=== PATIENT | female | born 1985 | race Caucasian/White ===

== ENCOUNTER 2020-08-31 20:17 | Emergency (ER) | payer MEDICAID ==
[~2020-08-31] VITALS: Ht 160 cm; Wt 68.2 kg
[~2020-08-31 20:17] MED LIST: ALBU18HF2 IH; CHLO1CAP PO; CHLO25CA10 PO; DICL100G15 TOP; GABA-530 PO; NITR100C6 PO; NO MEDS; ONDA4TAB6 PO; PRED20TA PO; ZOF4T PO
[2020-08-31 20:22] VITALS: BP 153/91
[2020-08-31] MEDS ORDERED: OFLO5DRO5 LEFT EAR (22:22)
== END 2020-08-31 22:34 | disposition home or self-care (01) ==
LOC: ER 20:19
DX: H60.92 Unspecified otitis externa, left ear (principal); R07.89 Other chest pain; R53.1 Weakness; R06.02 Shortness of breath; F15.90 Other stimulant use, unspecified, uncomplicated; F11.90 Opioid use, unspecified, uncomplicated; F19.90 Other psychoactive substance use, unspecified, uncomplicated; Z86.69 Personal history of other diseases of the nervous system and sense organs; Z86.19 Personal history of other infectious and parasitic diseases; Z98.890 Other specified postprocedural states; Z72.89 Other problems related to lifestyle; Z56.0 Unemployment, unspecified; Z88.0 Allergy status to penicillin; Z79.2 Long term (current) use of antibiotics; Z79.899 Other long term (current) drug therapy
CPT/HCPCS: 93005; 99283

== ENCOUNTER 2020-10-05 22:04 | Emergency (ER) | payer MEDICAID ==
[~2020-10-05] VITALS: Ht 160 cm; Wt 68.0 kg
[~2020-10-05 22:04] MED LIST changes: +OFLO5DRO5 LEFT EAR
[2020-10-05 22:31] VITALS: BP 112/78
[2020-10-05 23:42] LABS: BASOPHILS % (AUTO) 0.5 % (0-1); EOSINOPHILS % (AUTO) 0.1 % (0-6); HEMATOCRIT 39.9 % (35.0-45.0); HEMOGLOBIN 13.4 g/dl (12.0-16.0); LYMPHOCYTES # (AUTO) 2.8 X10'3 (1.1-4.8); LYMPHOCYTES % (AUTO) 48.3 % (21-51); MEAN CORPUSCULAR HEMOGLOBIN 29.7 PG (27.0-31.0); MEAN CORPUSCULAR HGB CONC 33.7 g/dL (33.0-36.5); MEAN CORPUSCULAR VOLUME 88.1 FL (78-98); MEAN PLATELET VOLUME 8.4 FL (7.4-10.4); MONOCYTES # (AUTO) 0.4 X10'3 (0-0.9); MONOCYTES % (AUTO) 6.6 % (2-12); NEUTROPHILS # (AUTO) 2.6 X10'3 (1.8-7.7); NEUTROPHILS % (AUTO) 44.5 % (42-75); PLATELET COUNT 191 X10'3 (140-440); RED BLOOD COUNT 4.53 X10'6 (4.20-5.60); RED CELL DISTRIBUTION WIDTH 14.3 % (11.5-14.5); WHITE BLOOD COUNT 5.8 X10'3 (4.5-11.0)
--- NOTE | 2020-10-05 23:44 | NUR ---
Pt sitting up at edge [email or web address] bed on phone.
[2020-10-05 23:53] LABS: ALANINE AMINOTRANSFERASE 112 U/L (12-78); ALKALINE PHOSPHATASE 52 IU/L (46-116); ANION GAP 10 (8-16); ASPARTATE AMINO TRANSFERASE 82 U/L (10-37); BILIRUBIN,TOTAL 0.2 MG/DL (0.1-1.0); BLOOD UREA NITROGEN 16 MG/DL (7-18); BUN/CREATININE RATIO 18.8 (6.6-38.0); CALCIUM 9.3 MG/DL (8.5-10.1); CHLORIDE 102 MMOL/L (99-107); CREATININE 0.85 MG/DL (0.40-0.90); GLUCOSE 87 MG/DL (70-104); POTASSIUM 3.8 MMOL/L (3.5-5.1); SODIUM 140 MMOL/L (135-145); TOTAL CARBON DIOXIDE 28.5 MMOL/L (24-32); TOTAL PROTEIN 8.2 G/DL (6.4-8.2); eGFR 77 ML/MIN
[2020-10-06 00:02] LABS: TROPONIN I < 0.04 NG/ML (0.0-0.05)
== END 2020-10-06 00:24 | disposition home or self-care (01) ==
LOC: ER 22:05
DX: R07.89 Other chest pain (principal); R20.2 Paresthesia of skin; M79.89 Other specified soft tissue disorders; F17.210 Nicotine dependence, cigarettes, uncomplicated; F15.90 Other stimulant use, unspecified, uncomplicated; F11.90 Opioid use, unspecified, uncomplicated; F19.90 Other psychoactive substance use, unspecified, uncomplicated; Z86.69 Personal history of other diseases of the nervous system and sense organs; Z86.19 Personal history of other infectious and parasitic diseases; Z98.890 Other specified postprocedural states; Z72.89 Other problems related to lifestyle; Z56.0 Unemployment, unspecified; Z88.0 Allergy status to penicillin; Z79.2 Long term (current) use of antibiotics; Z79.899 Other long term (current) drug therapy
CPT/HCPCS: 36415; 71045; 80053; 83880; 84484; 85025; 99284

== ENCOUNTER 2020-10-11 19:57 | Emergency (ER) | payer MEDICAID ==
[~2020-10-11] VITALS: Ht 160 cm; Wt 68.2 kg
[2020-10-11 20:17] VITALS: BP 141/89
[2020-10-11] MEDS ORDERED: PYRA144O PO (23:17)
== END 2020-10-11 23:23 | disposition home or self-care (01) ==
LOC: ER 19:59
DX: R10.9 Unspecified abdominal pain (principal); G40.909 Epilepsy, unspecified, not intractable, without status epilepticus; F15.90 Other stimulant use, unspecified, uncomplicated; Z56.0 Unemployment, unspecified; Z98.891 History of uterine scar from previous surgery; Z86.19 Personal history of other infectious and parasitic diseases; Z88.0 Allergy status to penicillin; Z79.2 Long term (current) use of antibiotics; Z79.899 Other long term (current) drug therapy; Z89.202 Acquired absence of left upper limb, unspecified level
CPT/HCPCS: 99282

== ENCOUNTER 2024-01-09 23:52 | Emergency (ER) | payer MEDICAID ==
[~2024-01-09] VITALS: Ht 160 cm; Wt 63.5 kg
[~2024-01-09 23:52] MED LIST changes: +PYRA144O PO
[2024-01-10] MEDS: LIDOcaine 1% W/epiNEPHrine 1:100,000 20ml vial IJ ONE (00:05)
[2024-01-10] MEDS: ondansetron/PF 4mg/2ml inj IV ONE (01:38)
[2024-01-10] MEDS: LORazepam 2 mg/ml vial IV ONE (01:39)
[2024-01-10] MEDS: TETanus/Pertussis (Acell)/Diphther VAC/PF (Tdap-Adult) 0.5ml syringe IMVAC ONE (01:40)
[2024-01-10] MEDS: fentaNYL/PF 50MCG/1 ML 2ML syringe IV ONE (01:46)
[2024-01-10] MEDS ORDERED: ketamine 50 mg/ml 10ml vial IV ONE (01:55)
[2024-01-10] MEDS ORDERED: hydrALAZINE 20mg/ml inj. IV ONE (02:20)
[2024-01-10] MEDS: ketamine 50 mg/ml 10ml vial IM ONE (03:45)
[2024-01-10] MEDS: ketamine 50 mg/ml 10ml vial IV ONE ×2 (04:54→05:01)
[2024-01-10] MEDS ORDERED: CEPH-585 PO (04:54)
[2024-01-10] MEDS: LORazepam 2 mg/ml vial IV STA (04:57)
[2024-01-10] MEDS: normal saline 1000ml 1,000 ML IV ONE (05:03)
[2024-01-10] MEDS: bacitracin 15gm ointment TP ONE (05:13)
[2024-01-10] MEDS: CefTRIAXone/D5W-Rocephin 1gm 50 ML IV ONE (05:13)
[2024-01-10 08:17] VITALS: TEMP 98.2
[2024-01-10] MEDS ORDERED: IBUP-1985 PO (10:13)
[2024-01-10 10:26] VITALS: BP 107/52; PULSE 105; RESP 16; O2SAT 97
== END 2024-01-10 10:29 | disposition home or self-care (01) ==
LOC: ER 23:53
DX: S51.811A Laceration without foreign body of right forearm, initial encounter (principal); F15.90 Other stimulant use, unspecified, uncomplicated; Z88.0 Allergy status to penicillin; Z79.2 Long term (current) use of antibiotics; Z79.899 Other long term (current) drug therapy; W25.XXXA Contact with sharp glass, initial encounter; Y93.89 Activity, other specified; Y92.89 Other specified places as the place of occurrence of the external cause; Y99.8 Other external cause status
CPT/HCPCS: 12034; 73090; 90471; 90715; 96365; 96375; 96376; 99152; 99153; 99285; J0696; J2060; J2405; J3010; J3490; J7030; 94760; A6258; A6446; A6449

== ENCOUNTER 2024-05-27 19:04 | Emergency (ER) | payer MEDICAID ==
[~2024-05-27] VITALS: Ht 160 cm; Wt 66.8 kg
[~2024-05-27 19:04] MED LIST changes: +IBUP-1985 PO
[2024-05-27 19:12] VITALS: BP 142/88; PULSE 115; RESP 16; TEMP 97.6; O2SAT 100
[2024-05-27 19:57] LABS: BASOPHILS % (AUTO) 0.6 % (0-1); EOSINOPHILS % (AUTO) 0.2 % (0-6); HEMATOCRIT 37.4 % (35.0-45.0); HEMOGLOBIN 12.1 g/dl (12.0-16.0); LYMPHOCYTES # (AUTO) 1.1 X10'3 (1.1-4.8); MEAN CORPUSCULAR HEMOGLOBIN 26.1 PG (27.0-31.0); MEAN CORPUSCULAR HGB CONC 32.4 g/dL (33.0-36.5); MEAN CORPUSCULAR VOLUME 80.5 FL (78-98); MEAN PLATELET VOLUME 7.9 FL (7.4-10.4); MONOCYTES # (AUTO) 0.7 X10'3 (0-0.9); MONOCYTES % (AUTO) 10.6 % (2-12); NEUTROPHILS # (AUTO) 4.4 X10'3 (1.8-7.7); NEUTROPHILS % (AUTO) 70.6 % (42-75); PLATELET COUNT 244 X10'3 (140-440); RED BLOOD COUNT 4.64 X10'6 (4.20-5.60); RED CELL DISTRIBUTION WIDTH 24.1 % (11.5-14.5); WHITE BLOOD COUNT 6.2 X10'3 (4.5-11.0)
[2024-05-27 20:02] LABS: ALANINE AMINOTRANSFERASE 104 U/L (12-78); ALBUMIN 4.1 G/DL (3.4-5.0); ALBUMIN/GLOBULIN RATIO 0.8 (1.1-1.5); ALKALINE PHOSPHATASE 86 IU/L (46-116); ANION GAP 11 (8-16); ASPARTATE AMINO TRANSFERASE 90 U/L (10-37); BILIRUBIN,TOTAL 0.4 MG/DL (0.1-1.0); BLOOD UREA NITROGEN 12 MG/DL (7-18); BUN/CREATININE RATIO 16.9 (10.0-20.0); CALCIUM 9.4 MG/DL (8.5-10.1); CHLORIDE 100 MMOL/L (99-107); CREATININE 0.71 MG/DL (0.40-0.90); GLUCOSE 118 MG/DL (70-104); POTASSIUM 3.7 MMOL/L (3.5-5.1); SODIUM 137 MMOL/L (135-145); TOTAL CARBON DIOXIDE 26.4 MMOL/L (24-32); TOTAL PROTEIN 9.1 G/DL (6.4-8.2); eCRCL 90 ML/MIN; eGFR > 90 ML/MIN
[2024-05-27 20:23] LABS: ANISOCYTOSIS 3+; MICROCYTOSIS FEW; PLATELET ESTIMATE NORMAL
[2024-05-27] MEDS ORDERED: CefTRIAXone 1000mg IM Kit (w/lidocaine diluent) IM ONE (20:45)
[2024-05-27] MEDS ORDERED: SULF1TAB49 PO (20:59)
== END 2024-05-27 21:57 | disposition home or self-care (01) ==
LOC: ER 19:04
DX: S91.115A Laceration without foreign body of left lesser toe(s) without damage to nail, initial encounter (principal); Z88.0 Allergy status to penicillin; Z79.899 Other long term (current) drug therapy; W25.XXXA Contact with sharp glass, initial encounter; Y93.89 Activity, other specified; Y92.89 Other specified places as the place of occurrence of the external cause; Y99.8 Other external cause status
CPT/HCPCS: 36415; 73660; 80053; 85008; 85025; 99284